=== PATIENT | female | born 1965 | race Caucasian/White ===

== ENCOUNTER 2018-12-01 09:56 | Day surgery (SDC) | payer BC ==
[2018-12-01] MEDS ORDERED: LIDOCAINE 2% MDV (20MG/ML) 20ML VIAL IV ONE (09:57)
[2018-12-01] MEDS ORDERED: PROPOFOL 10 MG/ML VIAL IV ONE (09:57)
[2018-12-01 13:45] LABS: FERRITIN 227.5 ng/mL (13-150)
--- NOTE | 2018-12-01 15:30 | Operative Note ---
OPERATION: COLONOSCOPY with hot snare polypectomy x2 along with hemoclip application. PREOPERATIVE DIAGNOSIS: Colon cancer screen. POSTOPERATIVE DIAGNOSIS: Colon polyps. PROCEDURE: After informed consent was obtained from the patient, she was placed in the left lateral decubitus position in the endoscopy suite, sedated and monitored by the department of anesthesia. Digital rectal exam was unremarkable. A well-lubricated [id number] colonoscope was inserted into the rectum and advanced to the cecum. Preparation quality was excellent. The cecum, cecal bulb, ileocecal valve, appendiceal orifice, and ascending colon were unremarkable. The cecum was inspected twice. No abnormalities were noted. The transverse colon was unremarkable. However, in the proximal descending colon there was a pedunculated polyp which was identified and appeared somewhat vascular. As a result, a hemoclip was applied to the stalk prior to the polypectomy. The snare was then placed around the mid stalk and with ERBE Endocut current, transection of the peduncle was performed. The polyp was removed. No bleeding was noted at the site. The clip was noted to be in appropriate position. The remainder of the descending colon and sigmoid colon were unremarkable. However, in the rectosigmoid colon there was a somewhat pedunculated polyp approximately 8-9 mm noted in rectosigmoid colon and removed with a polypectomy snare and ERBE Endocut current. No bleeding was noted at the polypectomy site. The polyp was retrieved. The site appeared unremarkable. Forward and J-turn views of the rectum and anorectum were unremarkable. The endoscope was straightened, the rectal ampulla deflated, and the endoscope was removed. RECOMMENDATIONS: The patient should follow a soft, low-fiber diet for the next 2 weeks. I would recommend a repeat exam in 1-3 years pending tissue histology. As for her elevated liver chemistries, I will be checking autoimmune, viral, and metabolic markers. At this point, it would seem that there is a possibility that she could have fatty liver. There may be perhaps even alcohol that could contribute to this but underlying organic disease needs to be excluded. As always, thank you for allowing me to participate in the healthcare of your patients. CC: DO ALIZA Costello
[2018-12-03 21:22] LABS: ANTIMITOCHONDRIAL ANTIBODY Negative (Negative); ANTISMOOTH MUSCLE ANTIBODY Negative (Negative); HEPATITIS B SURFACE ANTIBODY 3.34 mIU/mL; HEPATITIS B SURFACE ANTIGEN Nonreactive (Nonreactive); HEPATITIS C VIRUS ANTIBODY Nonreactive (Nonreactive)
[2018-12-05 09:52] LABS: ALPHA-1-ANTITRYPSIN 103 mg/dL (110-200)
[2018-12-05 16:07] LABS: t-Transglutaminase IgA 0.4 U/mL
== END 2018-12-01 12:05 | disposition home or self-care (01) ==
LOC: HOP 09:56
PROVIDERS: ATTEND Internal Medicine Gastroenterology
DX: Z12.11 Encounter for screening for malignant neoplasm of colon (principal); D12.4 Benign neoplasm of descending colon; D12.7 Benign neoplasm of rectosigmoid junction; R74.8 Abnormal levels of other serum enzymes; I10 Essential (primary) hypertension
CPT/HCPCS: 82728; 83550; 84443